=== PATIENT | female | born 1955 | race Caucasian/White ===

== ENCOUNTER 2018-08-30 08:53 | Emergency (ER) | payer BC, OTHER ==
[2018-08-30] MEDS ORDERED: NORMAL SALINE 1000 ML 1,000 ML IV ONE (09:25)
[2018-08-30] MEDS ORDERED: PROCHLORPERAZINE EDISYLATE INJ 10 MG/2 ML VIAL IV ONE (09:25)
[2018-08-30] MEDS ORDERED: DEXAMETHASONE SOD PHOS INJ 10 MG/1 ML VIAL IV ONE (09:25)
[2018-08-30] MEDS ORDERED: DIPHENHYDRAMINE HCL 50 MG/ML VIAL IV ONE (09:25)
--- NOTE | 2018-08-30 09:28 | ER Document Report ---
ED Medical Screen (RME) - General Chief Complaint: Headache Stated Complaint: HEADACHE Time Seen by Provider: 08/30/18 09:25 Primary Care Provider: GREGORY WOODRUFF MD [Primary Care Provider] - Follow up as needed Mode of Arrival: Ambulatory Information source: Patient Notes: Patient presents complaining of right-sided headache this been off and on for the past week. Patient states headache comes and she treats it with Tylenol and it goes away. Patient denies any head injury fever nausea or vomiting. Patient denies any history of headaches. Patient denies any fever. Patient denies any significant medical history. I have greeted and performed a rapid initial assessment of this patient. A comprehensive ED assessment and evaluation of the patient, analysis of test results and completion of the medical decision making process will be conducted by additional ED providers. - Related Data Allergies/Adverse Reactions: No Known Allergies Allergy (Verified 08/30/18 08:57) Physical Exam - Vital signs Vitals: Temp Pulse Resp BP Pulse Ox 97.7 F 76 15 164/80 H 99 08/30/18 08:59 08/30/18 08:59 08/30/18 08:59 08/30/18 08:59 08/30/18 08:59 - Neurological Neuro grossly intact: Yes Cognition: Normal [place] Coma Scale Eye Opening: Spontaneous [place] Coma Scale Verbal: Oriented [place] Coma Scale Motor: Obeys Commands [place] Coma Scale Total: 15 Course - Vital Signs Vital signs: Temp Pulse Resp BP Pulse Ox 97.7 F 76 15 164/80 H 99 08/30/18 08:59 08/30/18 08:59 08/30/18 08:59 08/30/18 08:59 08/30/18 08:59 Doctor's Discharge - Discharge Referrals: GREGORY WOODRUFF MD [Primary Care Provider] - Follow up as needed
--- NOTE | 2018-08-30 10:03 | ER Document Report ---
ED Headache - General Chief Complaint: Headache Stated Complaint: HEADACHE Time Seen by Provider: 08/30/18 09:25 Primary Care Provider: GREGORY WOODRUFF MD [ACTIVE STAFF] - Follow up as needed Mode of Arrival: Ambulatory - [facility] Notes: Patient is a 63-year-old female that presents to the emergency department for chief complaint of headache. Patient reports gradual onset of right ear and parietal headache 1 week ago. The pain has gradually worsened over the last week. She denies any associated vision changes, nausea/vomiting, numbness, weakness, neck pain, fevers/chills, photophobia and phonophobia. She denies history of headaches in the past with the exception of a few years ago when she was drinking a large amount of aspartame. Patient states she has been taking Tylenol and Advil at home which does give her temporary relief but has not resolved the headache. She also reports feeling a "swishing sound in her ears". She denies any recent head injury. She denies any family history of aneurysms or brain tumors. She denies sinus congestion and drainage as well as significant life stressors. Past Medical History: Negative Past Surgical History: Negative Social History: Denies drugs alcohol and tobacco Family History: Reviewed and noncontributory for presenting illness Allergies: Reviewed, see documented allergy list. REVIEW OF SYSTEMS: CONSTITUTIONAL : No fever No chills No diaphoresis No recent illness EENT: No vision changes No congestion No sore throat CARDIOVASCULAR: No chest pain No palpitations RESPIRATORY: No shortness of breath No cough No difficulty breathing GASTROINTESTINAL: No abdominal pain No nausea No vomiting No diarrhea GENITOURINARY: No dysuria No hematuria No difficulty urinating MUSCULOSKELETAL: No back pain No leg pain No arm pain SKIN: No rashes No lesions LYMPHATIC: No swollen, enlarged glands. NEUROLOGICAL: No lightheadedness headache No weakness No paresthesias PSYCHIATRIC: No anxiety No depression PHYSICAL EXAMINATION: Vital signs reviewed, nursing noted reviewed. GENERAL: Well-appearing, well-nourished and in no acute distress. HEAD: Atraumatic, normocephalic. EYES: Eyes appear normal, extraocular movements intact, sclera anicteric, conjunctiva are normal. ENT: No temporal tenderness bilaterally, TMs appear normal with no middle ear effusion, no sinus tenderness to percussion, nares patent, oropharynx clear without exudates. Moist mucous membranes. NECK: No midline or paraspinal tenderness, normal range of motion, supple without lymphadenopathy LUNGS: Breath sounds clear to auscultation bilaterally and equal. No wheezes rales or rhonchi. HEART: Regular rate and rhythm without murmurs ABDOMEN: Soft, nontender, normoactive bowel sounds. No rebound, guarding, or rigidity. No masses appreciated. EXTREMITIES: Nontender, good range of motion, no pitting or edema. NEUROLOGICAL: No focal neurological deficits. Moves all extremities spontaneously Motor and sensory grossly intact on exam. PSYCH: Normal mood, normal affect. SKIN: Warm, Dry, normal turgor, no rashes or lesions noted on exposed skin - Related Data Allergies/Adverse Reactions: No Known Allergies Allergy (Verified 08/30/18 08:57) Past Medical History - General Information source: Patient - Social History Smoking Status: Never Smoker Chew tobacco use (# tins/day): No Frequency of alcohol use: None Drug Abuse: None Family History: Reviewed & Not Pertinent Patient has suicidal ideation: No Patient has homicidal ideation: No Renal/ Medical History: Denies: Hx Peritoneal Dialysis Physical Exam - Vital signs Vitals: Temp Pulse Resp BP Pulse Ox 97.7 F 76 15 164/80 H 99 08/30/18 08:59 08/30/18 08:59 08/30/18 08:59 08/30/18 08:59 08/30/18 08:59 Course - Re-evaluation Re-evalutation: 08/30/18 10:03 Vitals reviewed. Nursing notes reviewed. Patient given medications for her headache. Since she has not had frequent headaches or history of migraines CT scan of her brain will be obtained for further assessment of her acute headache. It was gradual in onset and I have low suspicion for aneurysm or subarachnoid hemorrhage. 08/30/18 11:37 Patient reevaluated and states her headache has almost completely resolved. She states that is still present but very mild. She was given a dose of Toradol for further pain control. CT brain is normal and does not show any mass lesions or hemorrhage. Patient will be discharged home in improved and stable condition and will be referred to primary care. She was told that she had an elevated blood pressure reading which needs to be rechecked to the primary care doctor's office. Head CT 08/30/18 09:57 IMPRESSION: NORMAL BRAIN CT WITHOUT CONTRAST. EVIDENCE OF ACUTE STROKE: NO. - Vital Signs Vital signs: Temp Pulse Resp BP Pulse Ox 97.7 F 76 16 164/80 H 99 08/30/18 08:59 08/30/18 08:59 08/30/18 09:24 08/30/18 08:59 08/30/18 08:59 Discharge - Discharge Clinical Impression: Elevated blood pressure reading Cephalgia Qualifiers: Headache type: unspecified Headache chronicity pattern: acute headache Intractability: not intractable Qualified Code(s): R51 - Headache Condition: Stable Disposition: HOME, SELF-CARE Instructions: Headache ([facility]) Additional Instructions: Please return to the emergency department if you have any worsening, or concern of your symptoms. Please return to the emergency department if you develop chest pain, difficulty breathing, severe abdominal pain, or ongoing vomiting. Please follow-up with your primary care physician in 2-3 days and any other recommended physicians. If prescribed, take all medications as directed. If you have any questions or concerns do not hesitate to return the emergency department for evaluation. Your blood pressure was elevated in the ER today. This may be causing your headache. You need to have your blood pressure rechecked at a primary care doctor's office to discuss the potential for needing medications. Forms: Elevated Blood Pressure Referrals: GREGORY WOODRUFF MD [ACTIVE STAFF] - Follow up as needed
--- NOTE | 2018-08-30 11:06 | RADIOLOGY REPORT (SQ) ---
EXAM DESCRIPTION: CT HEAD WITHOUT COMPLETED DATE/TIME: 08/30/2018 10:48 am REASON FOR STUDY: headache, right pariatal COMPARISON: None. TECHNIQUE: Axial images acquired through the brain without intravenous contrast. Images reviewed wi th bone, brain and subdural windows. Additional sagittal and coronal reconstructions were generated. Images stored on PACS. All CT scanners at this facility use dose modulation, iterative reconstruction, and/or weight based d osing when appropriate to reduce radiation dose to as low as reasonably achievable (ALARA). [facility]: Dose Right [facility]: CareDose [facility]: Dose Right [facility]: Teradose 4D [facility]: [place] RADIATION DOSE: CT Rad equipment meets quality standard of care and radiation dose reduction techniq ues were employed. CTDIvol: 53.2 mGy. DLP: 1150 mGy-cm. mGy. LIMITATIONS: None. FINDINGS: VENTRICLES: Normal size and contour. CEREBRUM: No masses. No hemorrhage. No midline shift. No evidence for acute infarction. Normal gra y/white matter differentiation. No areas of low density in the white matter. CEREBELLUM: No masses. No hemorrhage. No alteration of density. No evidence for acute infarction. EXTRAAXIAL SPACES: No fluid collections. No masses. ORBITS AND GLOBE: No intra- or extraconal masses. Normal contour of globe without masses. CALVARIUM: No fracture. PARANASAL SINUSES: No fluid or mucosal thickening. SOFT TISSUES: No mass or hematoma. OTHER: No other significant finding. IMPRESSION: NORMAL BRAIN CT WITHOUT CONTRAST. EVIDENCE OF ACUTE STROKE: NO. COMMENT: Quality ID # [id number]: Final reports with documentation of one or more dose reduction techniques (e.g., Automated exposure control, adjustment of the mA and/or kV according to patient size, use of iterative reconstruction technique) TECHNICAL DOCUMENTATION: JOB ID: [id number] [employer]- All Rights Reserved Reading location - IP/workstation name: [email or web address]
[2018-08-30] MEDS ORDERED: KETOROLAC TROMETHAMINE INJ/PF 30 MG/1 ML SDV IV ONE (11:32)
[2018-08-30 12:13] VITALS: BP 133/70
== END 2018-08-30 12:13 | disposition home or self-care (01) ==
LOC: ER 08:53
DX: R03.0 Elevated blood-pressure reading, without diagnosis of hypertension (principal); R51 Headache; H92.01 Otalgia, right ear
CPT/HCPCS: 96375; 99283; 96361; 96374; 70450; J1200; J1885; J0780; J7030; J1100